=== PATIENT | male | born 1995 | race Caucasian/White ===

== ENCOUNTER 2018-04-06 23:07 | Emergency (ER) | payer OTHER ==
[~2018-04-06] VITALS: Ht 170.2 cm; Wt 74.8 kg
[2018-04-06 23:15] VITALS: BP 148/94; Ht 170.2 cm; Wt 74.8 kg
== END 2018-04-07 00:44 | disposition other institution (70) ==
LOC: ED 23:07
DX: Z02.89 Encounter for other administrative examinations (principal)

== ENCOUNTER 2018-07-18 20:52 | Emergency (ER) | payer OTHER | END 2018-07-18 21:25 | disposition other institution (70) | LOC: ED 20:52 | DX: Z02.89 Encounter for other administrative examinations (principal) ==

== ENCOUNTER 2018-07-18 20:52 | Emergency (ER) | payer SELFPAY ==
[~2018-07-18] VITALS: Ht 172.7 cm; Wt 70.3 kg
[2018-07-18 21:11] VITALS: BP 107/65; Ht 172.7 cm; Wt 70.3 kg
== END 2018-07-18 21:25 | disposition other institution (70) ==
LOC: ED 20:52
DX: F10.129 Alcohol abuse with intoxication, unspecified (principal)

== ENCOUNTER 2019-10-22 05:37 | Emergency (ER) | payer BC ==
[~2019-10-22] VITALS: Ht 172.7 cm; Wt 76.2 kg
[2019-10-22 05:38] VITALS: Ht 172.7 cm; Wt 76.2 kg
[2019-10-22 07:02] VITALS: BP 157/96
== END 2019-10-22 07:02 | disposition other institution (70) ==
LOC: ED 05:37
DX: S61.217A Laceration without foreign body of left little finger without damage to nail, initial encounter (principal); S00.83XA Contusion of other part of head, initial encounter; J45.909 Unspecified asthma, uncomplicated; Y04.8XXA Assault by other bodily force, initial encounter; Y93.89 Activity, other specified; Y92.89 Other specified places as the place of occurrence of the external cause; Y99.8 Other external cause status

== ENCOUNTER 2019-10-22 05:37 | Emergency (ER) | payer OTHER | END 2019-10-22 07:02 | disposition other institution (70) | LOC: ED 05:37 | DX: Z02.89 Encounter for other administrative examinations (principal) ==

== ENCOUNTER 2020-02-22 06:35 | Emergency (ER) | payer BC ==
[~2020-02-22] VITALS: Ht 172.7 cm; Wt 73.6 kg
[2020-02-22 06:47] VITALS: Ht 172.7 cm; Wt 73.6 kg
[2020-02-22 07:59] VITALS: BP 147/95
== END 2020-02-22 07:59 | disposition home or self-care (01) ==
LOC: ED 06:35
DX: S41.112A Laceration without foreign body of left upper arm, initial encounter (principal); J45.909 Unspecified asthma, uncomplicated; X58.XXXA Exposure to other specified factors, initial encounter; Y93.89 Activity, other specified; Y92.89 Other specified places as the place of occurrence of the external cause; Y99.8 Other external cause status
CPT/HCPCS: 90715; J2001

== ENCOUNTER 2020-02-22 11:49 | Emergency (ER) | payer BC ==
[~2020-02-22] VITALS: Ht 172.7 cm; Wt 73.0 kg
[2020-02-22 11:59] VITALS: BP 123/72; Ht 172.7 cm; Wt 73.0 kg
== END 2020-02-22 12:39 | disposition home or self-care (01) ==
LOC: ED 11:49
DX: S41.112A Laceration without foreign body of left upper arm, initial encounter (principal); J45.909 Unspecified asthma, uncomplicated; W22.8XXA Striking against or struck by other objects, initial encounter; Y93.89 Activity, other specified; Y92.89 Other specified places as the place of occurrence of the external cause; Y99.8 Other external cause status
CPT/HCPCS: J2001